=== PATIENT | male | born 1970 | race Native Hawaiian/Other Pacific Islander ===

== ENCOUNTER 2018-09-19 15:51 | Emergency (ER) | payer OTHER ==
[~2018-09-19] VITALS: Ht 175.3 cm; Wt 86.9 kg
[2018-09-19 16:00] VITALS: TEMP 97.9
[2018-09-19 16:55] VITALS: BP 139/71
== END 2018-09-19 16:59 | disposition home or self-care (01) ==
LOC: ED 15:51
DX: M79.642 Pain in left hand (principal); M79.641 Pain in right hand; R20.0 Anesthesia of skin; G56.03 Carpal tunnel syndrome, bilateral upper limbs
CPT/HCPCS: 96372; 99283; J1020; J1885